=== PATIENT | female | born 1955 | race Caucasian/White ===

== ENCOUNTER 2016-10-15 08:03 | Emergency (ER) | payer OTHER ==
[~2016-10-15] VITALS: Ht 167.6 cm; Wt 72.3 kg
[2016-10-15 08:12] VITALS: BP 132/80; PULSE 53; RESP 16; TEMP 98.3; O2SAT 98
--- NOTE | 2016-10-15 09:45 | PD ---
HPI Chief Complaint: Abdominal Pain Time Seen by Provider: 09:15 Travel History International Travel<30 days: No Contact w/Intl Traveler<30days: No Traveled to known affect area: No History of Present Illness HPI This 60-year-old female presents with complaint of abdominal pain. This morning she got up and okay. She then developed quite intense severe pain which started in the epigastric region. The pain moved to the right upper quadrant area and her abdomen became quite tense and the pain was severe. It was this way for about 90 minutes. It has subsided a bit at this point. She does not have any food intolerance. She had eaten some potato chips around 2: 00 in the morning. She had a colonoscopy in the past which was normal. She was diagnosed with a hiatal hernia in the past. There was no vomiting or diarrhea. PFSH Past Medical History Hiatal Hernia: Yes Tetanus Vaccination: > 5 Years Influenza Vaccination: No ?: Not LMP: MENOPAUSAL Past Surgical History Gynecologic Surgery: Yes (left breast lumpectomy, beign tumor) Social History Alcohol Use: Yes (occa. mix drink, wine and or beer) Tobacco Use: No Substance Use: No Allergies-Medications (Allergen,Severity, Reaction): Coded Allergies: No Known Allergies (Unverified , 10/15/16) Reported Meds & Prescriptions Reported Meds & Active Scripts Active No Active Prescriptions or Reported Medications Review of Systems General / Constitutional: No: Fever, Chills Eyes: No: Diploplia, Blurred Vision HENT: No: Headaches Cardiovascular: No: Chest Pain or Discomfort Respiratory: No: Cough Gastrointestinal: Positive: Abdominal Pain, No: Vomiting, Diarrhea Genitourinary: No: Dysuria Musculoskeletal: No: Myalgias Skin: No Rash Physical Exam Narrative GENERAL: Well-developed female SKIN: Warm and dry. HEAD: Atraumatic. Normocephalic. EYES: Pupils equal and round. No scleral icterus. No injection or drainage. ENT: No nasal bleeding or discharge. Mucous membranes pink and moist. NECK: Trachea midline. No JVD. CARDIOVASCULAR: Regular rate and rhythm. No murmur appreciated. RESPIRATORY: No accessory muscle use. Clear to auscultation. Breath sounds equal bilaterally. GASTROINTESTINAL: Abdomen soft, non-tender, nondistended. Hepatic and splenic margins not palpable. MUSCULOSKELETAL: No obvious deformities. No clubbing. No cyanosis. No edema. NEUROLOGICAL: Awake and alert. No obvious cranial nerve deficits. Motor grossly within normal limits. Normal speech. PSYCHIATRIC: Appropriate mood and affect; insight and judgment normal. Data Data Last Documented VS Vital Signs Date Time Temp Pulse Resp B/P Pulse Ox O2 Delivery O2 Flow Rate FiO2 10/15/16 11:25 18 10/15/16 11:25 100 141/81 99 Room Air 10/15/16 08:12 98.3 Orders Complete Blood Count With Diff (10/15/16 09:41) Comprehensive Metabolic Panel (10/15/16 09:41) Lipase (10/15/16 09:41) Us Abdomen Gallbladder (10/15/16 09:41) Labs Laboratory Tests Test 10/15/16 11:20 White Blood Count 5.9 TH/MM3 Red Blood Count 4.43 MIL/MM3 Hemoglobin 12.8 GM/DL Hematocrit 38.6 % Mean Corpuscular Volume 87.2 FL Mean Corpuscular Hemoglobin 28.9 PG Mean Corpuscular Hemoglobin 33.2 % Concent Red Cell Distribution Width 12.2 % Platelet Count 256 TH/MM3 Mean Platelet Volume 7.9 FL Neutrophils (%) (Auto) 70.5 % Lymphocytes (%) (Auto) 23.9 % Monocytes (%) (Auto) 4.4 % Eosinophils (%) (Auto) 0.4 % Basophils (%) (Auto) 0.8 % Neutrophils # (Auto) 4.2 TH/MM3 Lymphocytes # (Auto) 1.4 TH/MM3 Monocytes # (Auto) 0.3 TH/MM3 Eosinophils # (Auto) 0.0 TH/MM3 Basophils # (Auto) 0.0 TH/MM3 CBC Comment DIFF FINAL Differential Comment Sodium Level 144 MEQ/L Potassium Level 4.5 MEQ/L Chloride Level 108 MEQ/L Carbon Dioxide Level 28.5 MEQ/L Anion Gap 8 MEQ/L Blood Urea Nitrogen 23 MG/DL Creatinine 0.81 MG/DL Estimat Glomerular Filtration 73 ML/MIN Rate Random Glucose 111 MG/DL Calcium Level 8.4 MG/DL Total Bilirubin 0.9 MG/DL Aspartate Amino Transf 12 U/L (AST/SGOT) Alanine Aminotransferase 18 U/L (ALT/SGPT) Alkaline Phosphatase 71 U/L Total Protein 7.0 GM/DL Albumin 3.8 GM/DL Lipase 285 U/L MDM Medical Decision Making Medical Screen Exam Complete: Yes Emergency Medical Condition: Yes Medical Record Reviewed: Yes Differential Diagnosis Differential includes biliary colic, cholecystitis, GERD, nonspecific abdominal pain Narrative Course Her pain is much improved now than it was at home. Ultrasound of the gallbladder is negative. Lab work is unremarkable. Her description of the pain is very suspicious for biliary colic but workup is negative. She is pain- free now and will be released. I recommended she follow up with GI if these symptoms recur. Diagnosis is abdominal pain of uncertain etiology which has resolved Diagnosis Primary Impression: abdominal pain resolveD Scripts No Active Prescriptions or Reported Meds Disposition: 01 DISCHARGE HOME Condition: Stable Sandro Guzman MD Oct 15, 2016 09:45
[2016-10-15 11:25] VITALS: BP 141/81; PULSE 100; RESP 16; O2SAT 99
[2016-10-15 11:28] LABS: AUTOMATED NEUTROPHIL # 4.2 TH/MM3 (1.8-7.7); BASOPHIL % 0.8 % (0.0-2.0); EOSINOPHIL % 0.4 % (0.0-4.0); HEMATOCRIT 38.6 % (35.0-46.0); HEMO FLAGS DIFF FINAL; LYMPH % 23.9 % (9.0-44.0); LYMPHOCYTE # 1.4 TH/MM3 (1.0-4.8); MEAN CELL VOLUME 87.2 FL (80.0-100.0); MEAN CORPUSCULAR HEMOGLOBIN 28.9 PG (27.0-34.0); MEAN CORPUSCULAR HGB CONC 33.2 % (32.0-36.0); MONO % 4.4 % (0.0-8.0); NEUT % 70.5 % (16.0-70.0); PLATELET COUNT 256 TH/MM3 (150-450); RED BLOOD COUNT 4.43 MIL/MM3 (4.00-5.30); RED CELL DISTRIBUTION WIDTH 12.2 % (11.6-17.2); WHITE BLOOD COUNT 5.9 TH/MM3 (4.0-11.0)
--- NOTE | 2016-10-15 11:31 | RADHPO ---
EXAM DATE/TIME: 10/15/2016 10:45 [facility] COMPARISON: No previous studies available for comparison. INDICATIONS : Right upper quadrant pain. MEDICAL HISTORY : Hernia, hiatal. SURGICAL HISTORY : Left breast lumpectomy - benign tumor. Colonoscopy. ENCOUNTER: Initial ACUITY: 1 day PAIN SCORE: 0/10 LOCATION: Right upper quadrant MEASUREMENTS: LIVER: 18.3 cm length COMMON DUCT: 8 mm RIGHT KIDNEY: 10.9 x 4.3 x 5.8 cm FINDINGS: LIVER: Normal echotexture without focal lesion or ductal dilatation. COMMON DUCT: No intraluminal mass or stone visualized. GALLBLADDER: Contains no stones, demonstrates no wall thickening or pericholecystic fluid. PANCREAS: The visualized portions are within normal limits. RIGHT KIDNEY: No evidence of hydronephrosis, stone, or mass. CONCLUSION: No acute disease. Sarah Vela MD on October 15, 2016 at 11:28 Board Certified Radiologist. This report was verified electronically.
[2016-10-15 11:34] LABS: CHLORIDE 108 MEQ/L (98-107); POTASSIUM 4.5 MEQ/L (3.5-5.1); SODIUM (NA) 144 MEQ/L (136-145)
[2016-10-15 11:40] LABS: ANION GAP 8 MEQ/L (5-15); BICARBONATE 28.5 MEQ/L (21.0-32.0); BLOOD UREA NITROGEN 23 MG/DL (7-18)
[2016-10-15 11:43] LABS: ALT (GPT) 18 U/L (10-53); AST (GOT) 12 U/L (15-37); GLOMERULAR FILTRATION RATE 73 ML/MIN (>89)
[2016-10-15 11:45] LABS: TOTAL BILIRUBIN ADULT 0.9 MG/DL (0.2-1.0)
[2016-10-15 11:46] LABS: ALKALINE PHOSPHATASE 71 U/L (45-117)
== END 2016-10-15 12:15 | disposition home or self-care (01) ==
LOC: PHED 08:03
DX: R10.9 Unspecified abdominal pain (principal)
CPT/HCPCS: 76705; 80053; 83690; 85025